=== PATIENT | male | born 1990 | race Caucasian/White ===

== ENCOUNTER 2019-09-28 10:45 | Emergency (ER) | payer BC ==
[~2019-09-28] VITALS: Ht 195.6 cm; Wt 81.8 kg
[2019-09-28 10:53] VITALS: BP 130/78; Ht 195.6 cm; Wt 81.8 kg
[2019-09-28] MEDS ORDERED: HYDROCODON-ACE1 EA10 PO (11:25)
== END 2019-09-28 11:40 | disposition home or self-care (01) ==
LOC: D.ER 10:45
DX: M79.642 Pain in left hand (principal); S62.307A Unspecified fracture of fifth metacarpal bone, left hand, initial encounter for closed fracture; S60.222A Contusion of left hand, initial encounter; M79.18 Myalgia, other site; M79.622 Pain in left upper arm; W22.8XXA Striking against or struck by other objects, initial encounter; Y93.89 Activity, other specified; Y92.9 Unspecified place or not applicable

== ENCOUNTER 2019-10-06 05:36 | Day surgery (SDC) | payer BC ==
[~2019-10-06] VITALS: Ht 195.6 cm; Wt 81.6 kg
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
[~2019-10-06 05:36] MED LIST: HYDROCODON-ACE1 EA10 PO
[2019-10-06 06:29] VITALS: Ht 195.6 cm; Wt 81.6 kg
[2019-10-06] MEDS ORDERED: HYDROCODON-ACE1 EA10 PO (07:49)
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
--- NOTE | 2019-10-06 09:11 | NUR ---
0900-FULL LIQUID TRAY TO ROOM. DENIES COMPLAINTS.VSS.DRESSING CDI
--- NOTE | 2019-10-06 09:30 | NUR ---
0925-REVIEWED DISCHARGE PAPERWORK, PT WILL CALL 'S OFFICE FOR FOLLOW UP APOINTMENT. ESCORTED OUT VIA W/C WITH FRIEND AWAITING TO DRIVE HOME
== END 2019-10-06 09:25 | disposition home or self-care (01) ==
LOC: D.PAN 05:36 → D.OPS 09:30
PROVIDERS: ATTEND Orthopaedic Surgery
DX: S62.307A Unspecified fracture of fifth metacarpal bone, left hand, initial encounter for closed fracture (principal); W22.8XXA Striking against or struck by other objects, initial encounter

== ENCOUNTER 2020-02-22 18:52 | Emergency (ER) | payer BC ==
[~2020-02-22] VITALS: Ht 195.6 cm; Wt 81.8 kg
[2020-02-22 19:09] VITALS: Ht 195.6 cm; Wt 81.8 kg
[2020-02-22] MEDS ORDERED: DICLOFENAC SODI50 MG PO (19:58)
[2020-02-22 20:17] VITALS: BP 131/98
== END 2020-02-22 20:17 | disposition home or self-care (01) ==
LOC: D.ER 18:52
DX: S93.401A Sprain of unspecified ligament of right ankle, initial encounter (principal); X58.XXXA Exposure to other specified factors, initial encounter; M25.571 Pain in right ankle and joints of right foot

== ENCOUNTER 2020-02-26 10:54 | Emergency (ER) | payer BC ==
[~2020-02-26] VITALS: Ht 195.6 cm; Wt 81.8 kg
[~2020-02-26 10:54] MED LIST changes: +DICLOFENAC SODI50 MG PO
[2020-02-26 11:01] VITALS: Ht 195.6 cm; Wt 81.8 kg
[2020-02-26 11:24] LABS: BASOPHILS 0.2 % (0-2); EOSINOPHILS 2.4 % (0-7); HEMOGLOBIN 16.1 g/dL (13.5-17.5); IMMATURE GRANULOCYTES 0.2 % (0-5); LYMPHOCYTES 32.1 % (15-50); MCH 33.2 pg (26.0-34.0); MCHC 34.3 g/dL (31.0-37.0); MCV 96.9 fL (80.0-100.0); MEAN PLATELET VOLUME 9.7 fL (7.4-10.4); MONOCYTES 6.8 % (2-11); NEUTROPHILS 58.3 % (40-80); PLATELET COUNT 235 10x3/uL (130-400); RBC 4.85 10x6/uL (4.20-6.10); RDW 13.3 % (11.5-14.5); WBC 5.8 10x3/uL (4.8-10.8)
[2020-02-26 11:30] LABS: CALC OSMOLALITY 284 mosm/kg (275-300); CALCIUM 9.2 mg/dL (8.5-10.1); CHLORIDE - SERUM 107 mmol/L (98-107); CREATININE - SERUM 0.8 mg/dL (0.6-1.3); GLUCOSE 110 mg/dL (74-106); POTASSIUM - SERUM 4.9 mmol/L (3.5-5.1); SODIUM 143 mmol/L (136-145); UREA NITROGEN 11 mg/dL (7-18); eGFR NON AFRICAN AMERICAN > 90 mL/min (90-120)
[2020-02-26 11:36] LABS: APTT 25.2 SECONDS (22.8-39.4); INR 0.88 (0.85-1.17); PROTIME 11.9 SECONDS (11.6-15.0)
[2020-02-26 11:37] LABS: ALBUMIN 4.4 g/dL (3.4-5.0); ALKALINE PHOSPHATASE 75 U/L (30-120); ALT (SGPT) 41 U/L (10-68); BILIRUBIN - TOTAL 0.31 mg/dL (0.2-1.3); PROTEIN - SERUM 7.2 g/dL (6.4-8.2)
[2020-02-26] MEDS ORDERED: IBUPROFEN800 MG PO (12:41)
[2020-02-26] MEDS ORDERED: ACETAMINOPHEN500 M1 PO (12:41)
[2020-02-26] MEDS ORDERED: CYCLOBENZAPRINE10 MG PO (12:41)
[2020-02-26 13:09] LABS: BILIRUBIN NEGATIVE (NEGATIVE); KETONE NEGATIVE (NEGATIVE); NITRITE NEGATIVE (NEGATIVE); UROBILINOGEN NORMAL (NORMAL)
[2020-02-26 13:11] VITALS: BP 112/57
== END 2020-02-26 13:14 | disposition home or self-care (01) ==
LOC: D.ER 10:54
PROVIDERS: Family Medicine
DX: M54.9 Dorsalgia, unspecified (principal); M54.2 Cervicalgia; R51 Headache; M79.18 Myalgia, other site; T14.8XXA Other injury of unspecified body region, initial encounter; V86.99XA Unspecified occupant of other special all-terrain or other off-road motor vehicle injured in nontraffic accident, initial encounter; Y93.9 Activity, unspecified; Y92.9 Unspecified place or not applicable